=== PATIENT | male | born 1975 | race Native Hawaiian/Other Pacific Islander ===

== ENCOUNTER 2022-11-09 03:21 | Emergency (ER) | payer MEDICAID ==
[~2022-11-09] VITALS: Ht 182.9 cm; Wt 96.8 kg
[2022-11-09 03:25] VITALS: BP 127/64; PULSE 88; RESP 14; TEMP 98.4
[2022-11-09] MEDS ORDERED: IBUPROFEN 600 MG TABLET PO ONE (04:30)
== END 2022-11-09 05:25 | disposition home or self-care (01) ==
LOC: EMS 03:24
DX: S93.611A Sprain of tarsal ligament of right foot, initial encounter (principal); F17.210 Nicotine dependence, cigarettes, uncomplicated; X58.XXXA Exposure to other specified factors, initial encounter; Y93.89 Activity, other specified; Y92.89 Other specified places as the place of occurrence of the external cause; Y99.8 Other external cause status
CPT/HCPCS: 99283